=== PATIENT | female | born 1980 | race Caucasian/White ===

== ENCOUNTER 2018-02-18 05:56 | Inpatient (IN) | payer OTHER ==
[2018-02-18 06:23] VITALS: BMI 24.5
--- NOTE | 2018-02-18 07:05 | OBHP ---
Datetime: 02/18/2018 06:56 IP Adm Impression: Term, intrauterine ; Intact Membranes IP Admit Plan: Admit to unit; Initiate labor augmentation protocol Admit Comment, IP Provider: 37 yo female with an IUP at 39 weeks Present with c/o of irregular contractions and Decrease Movement Will Admit in early labor and for augmentation, as per Dr. Pineda Rh +/ GBS Negative Pelvic Type - PN: Adequate Extremities - PN: Normal Abdomen - PN: Normal Back - PN: Normal Breast - PN: Not Done Lungs - PN: Normal Heart - PN: Normal Thyroid - PN: Normal Neurologic - PN: Normal HEENT - PN: Normal General - PN: Normal Presentation-Admit: Vertex FHR - Baseline A Provider: 130 Membranes, Provider: Intact Contraction Comments Provider: 5-6 mins Comments, ACOG Physical Exam: SVE: 2cms, 80%, -2 but posterior Gestation - Est Wks by US: 39.0 EGA AdmitDate IP: 39.1 Vital Signs Provider: Reviewed; Within Normal Limits IP Chief Complaint: Uterine contractions; Decreased movement NICHD Variability Prov Fetus A: Moderate 6-25bpm NICHD Accel Fetus A IP Provider: [id number] FHR Category Provider Fetus A: Category I Dilatation, Provider: 2 Effacement, Provider: 80 Station, Provider: -2 Genitourinary Exam: Normal DTRs - PN: Normal
[2018-02-18] MEDS ORDERED: Oxytocin 30 UNIT 30 UNITS/500 ML BAG IV SCH (07:15)
--- NOTE | 2018-02-18 07:24 | OBADHP ---
Datetime: 02/18/2018 06:56 Admit Comment, IP Provider: 37 yo female with an IUP at 39 weeks Present with c/o of irregular contractions and Decrease Movement increasing intentiy and fru qency 04/08. pt dneis lof, vb. Will Admit in early labor and for augmentation, as per Dr. Pineda Rh +/ GBS Negative OB: P0 [employer]: Deie PMH: Denie sPSH: Denies FHX: non tontiub MEDS: PNV SHX: negaive x 3 NKDA A/P @ 39+ wks augmentaiton for oligohdrmanin, ama -admit to L+D -npo, ivf -admissin labs -Pian medication options dw -pitocn -cont toco adn efm Pelvic Type - PN: Adequate Extremities - PN: Normal Abdomen - PN: Normal Back - PN: Normal Breast - PN: Not Done Lungs - PN: Normal Heart - PN: Normal Thyroid - PN: Normal Neurologic - PN: Normal HEENT - PN: Normal General - PN: Normal Presentation-Admit: Vertex FHR - Baseline A Provider: 130 Membranes, Provider: Intact Contraction Comments Provider: 5-6 mins Comments, ACOG Physical Exam: Bedsdie Sonogram SVE: 2cms, 80%, -2 but posterior Bedside sonogram SUNDAY 4.7cm Gestation - Est Wks by US: 39.0 IP Hx Assessment: The History has been Reviewed and is Current Vital Signs Provider: Reviewed; Within Normal Limits IP Chief Complaint: Uterine contractions; Decreased movement NICHD Variability Prov Fetus A: Moderate 6-25bpm NICHD Accel Fetus A IP Provider: [id number] FHR Category Provider Fetus A: Category I Dilatation, Provider: 2 Effacement, Provider: 80 Station, Provider: -2 Genitourinary Exam: Normal DTRs - PN: Normal EGA AdmitDate IP: 39.1 IP Adm Impression: Term, intrauterine ; Intact Membranes IP Admit Plan: Admit to unit; Initiate labor augmentation protocol
[2018-02-18] MEDS ORDERED: Oxytocin 30 UNIT 30 UNITS/500 ML BAG IV ONE (07:25)
[2018-02-18 08:19] LABS: BASO % 0.3 % (0.0-2.0); EOS # 0.1 K/uL (0.0-0.7); EOS % 1.2 % (0.0-4.0); LYMPH % 23.3 % (20.0-40.0); MEAN CELL VOLUME 85.4 fL (81.0-99.0); MEAN CORPUSCULAR HEMOGLOBIN 29.5 pg (27.0-31.0); MEAN CORPUSCULAR HGB CONC 34.5 g/dL (33.0-37.0); MEAN PLATELET VOLUME 8.7 fL (7.2-11.7); MONO # 0.5 K/uL (0.0-0.8); MONO % 6.4 % (0.0-10.0); NEUT # 5.9 K/uL (1.8-7.0); NEUT % 68.8 % (50.0-75.0); RBC 4.06 Mil/uL (3.80-5.20); RED CELL DISTRIBUTION WIDTH 13.5 % (11.5-14.5); WHITE BLOOD COUNT 8.5 K/uL (4.8-10.8)
[2018-02-18 08:30] LABS: ALB/GLOB RATIO 1.3 (1.0-2.1); ALBUMIN 3.7 g/dL (3.5-5.0); ALT/SGPT 19 U/L (9-52); AST/SGOT 20 U/L (14-36); BLOOD UREA NITROGEN 4 mg/dL (7-17); CALCIUM 9.2 mg/dl (8.6-10.4); GFR AFRICAN-AMERICAN > 60; GFR NON-AFRICAN AMERICAN > 60
[2018-02-18 08:32] LABS: SQUAMOUS EPITHIAL 10 /hpf (0-5); URINE BACTERIA MANY (<OCC); URINE BILIRUBIN NEGATIVE (NEGATIVE); URINE BLOOD NEGATIVE (NEGATIVE); URINE CLARITY Clear (Clear); URINE COLOR Straw (YELLOW); URINE GLUCOSE (UA) NORMAL (Normal); URINE LEUKOCYTE ESTERASE 1+ Leu/uL (Negative); URINE PROTEIN NEGATIVE (NEGATIVE); URINE UROBILINOGEN NORMAL mg/dL (0.2-1.0)
--- NOTE | 2018-02-18 11:01 | OBPN ---
Datetime: 02/18/2018 10:58 IP Progress Impression: Normal progression of labor IP Progress Plan: Continue present management Membranes, Provider: Intact FHR - Baseline A Provider: 125 Gestation - Est Wks by US: 39.1 Presentation-Admit: Vertex IP Progress Note Comment: pt seen adn examiend c/o of pain , desiresing epdiural, no lof, vb, +FM VSS VE: 4/50/-2 vtx, intact EMF: Cat I TOCO: q 2-3 min Pitoicn 5mu/min A/P @ 39+ wks in labor anesthesia consult pitocin as per protocol cont curretn mangamet Vital Signs Provider: Reviewed; Within Normal Limits FHR Category Provider Fetus A: Category I NICHD Variability Prov Fetus A: Moderate 6-25bpm Dilatation, Provider: 4 Effacement, Provider: 50 Station, Provider: -2 NICHD Decel Fetus A IP Provider: None Datetime: 02/18/2018 06:56 Contraction Comments Provider: 5-6 mins NICHD Accel Fetus A IP Provider: [id number]
[2018-02-18] MEDS ORDERED: Bupivacaine HCl/FentaNYL Cit 100 ML EPI ONE (11:02)
[2018-02-18] MEDS ORDERED: Morphine 1 mg/ml preservative-free Inj(Duramorph) ONE (11:42)
--- NOTE | 2018-02-18 13:31 | OBPN ---
Datetime: 02/18/2018 13:27 IP Progress Impression: Normal progression of labor IP Procedures: Artificial ROM IP Progress Plan: Continue present management Membranes, Provider: Ruptured Amniotic Fluid Color, Provider: Clear FHR - Baseline A Provider: 125 Gestation - Est Wks by US: 39.1 Presentation-Admit: Vertex IP Progress Note Comment: pt seen and examiend rperots pian better controlled after epidural VSS EF: Cat I TOCO: q 2-4 min Pitocin 5mu/min A/P @ 39+ wks in labor cont curretn magent Vital Signs Provider: Reviewed; Within Normal Limits FHR Category Provider Fetus A: Category I NICHD Variability Prov Fetus A: Moderate 6-25bpm Dilatation, Provider: 6 Effacement, Provider: 90 Station, Provider: -1 NICHD Decel Fetus A IP Provider: None
[2018-02-18] MEDS ORDERED: Oxytocin 10 Units/ml Inj ONE (14:39)
--- NOTE | 2018-02-18 16:01 | OBPN ---
Datetime: 02/18/2018 15:41 IP Progress Impression: Normal progression of labor IP Progress Plan: Continue present management Membranes, Provider: Ruptured FHR - Baseline A Provider: 125 Gestation - Est Wks by US: 39.1 Presentation-Admit: Vertex IP Progress Note Comment: pt seen adn examined for progressin of laobs s/p epdiural feels pressure vE: 10cm EMF Cat I TOCO: q 2 min A/P @ 39+ wks fully dilated strat pushign anticipate cont curretn mangamet Vital Signs Provider: Reviewed; Within Normal Limits FHR Category Provider Fetus A: Category I NICHD Variability Prov Fetus A: Moderate 6-25bpm Dilatation, Provider: 10 Effacement, Provider: 100 Station, Provider: -1 NICHD Decel Fetus A IP Provider: None
--- NOTE | 2018-02-18 16:34 | OBDS ---
MATERNAL INFORMATION Provider Comments: Pt was fully dlate dand pushing. verbacl consent for right mediolateral episitomy given by patient, Atraumtaic, spontaneous delivery of head with compoud left hand, no nuchal cord no olaf. atraumatic, spontaneous delivery of anterior followed by posterior shoulder followed by delivery of shelley body. both oral and nasal passages of the baby were bulb suctioned. umbilical cord was clampe d and cut. Baby handed to mother on abdomen with RN assistance. Cord blood and cord gases collected a nd sent x 2. Spontaneosus delivery of intact placenta with membranes, fundus firm, good hemostaiss. r ight mediolateral epistiomy repaired iwht local anesthetic lidocaine with epinephrien with 2-0 and 3- 0 chromic suture. good hemostasis, no complications Live female infant agpars 9,9 weight of 7lbs 7 ounces ebls 300ml no complications LABOR SUMMARY EDC: 02/24/2018 00:00 MEMBRANES Membranes Rupture Method: Artificial Rupture of Membranes: 02/18/2018 13:20 Length of Rupture (hrs): 2.78 Amniotic Fluid Color: Clear Amniotic Fluid Amount: Moderate Amniotic Fluid Odor: Normal STAGES OF LABOR Stage 3 hrs: 0 Stage 3 min: 2 VAGINAL DELIVERY Episiotomy: Right Mediolateral Laceration Extension: Second Degree Laceration Type: Perineal Laceration Repair: Yes Initial Vag Sponge Count: 10 Final Vag Sponge Count: 10 Initial Vag Sharps Count: 3 Final Vag Sharps Count: 3 Sponge Count Correct: Yes Sharps Count Correct: Yes BABY A INFORMATION Infant Delivery Date/Time: 02/18/2018 16:07 Method of Delivery: Vaginal Born in Route : No : N/A Forceps: N/A Vacuum Extraction: N/A Shoulder Dystocia : No SHOULDER DYSTOCIA BABY A Infant Delivery Date/Time: 02/18/2018 16:07 PRESENTATION/POSITION BABY A Presentation: Compound with left hand Cephalic Presentation: Vertex Vertex Position: Left Occipital Anterior Breech Presentation: N/A PLACENTA INFORMATION BABY A Placenta Delivery Time : 02/18/2018 16:09 Placenta Method of Delivery: Spontaneous Placenta Status: Delivered INFORMATION BABY A Gestational Age at Delivery: 39.1 Gestational Status: Term Outcome : Liveborn Condition : Stable Infant Sex: Female IDENTIFICATION/MEDS BABY A ID Band Number: [id number] ID Band Location: Left Leg; Left Arm Sensor Applied: Yes Sensor Number: [id number] Sensor Location : Cord Clamp WEIGHT/LENGTH BABY A Birthweight (gms): 3365 Weight (lb): 7 Weight (oz): 7 Length Inches: 20.00 Infant Length cms: 50.8 CORD INFORMATION BABY A No. Cord Vessels: 3 Nuchal Cord : N/A Suction: Mouth; Nose ASSESSMENT BABY A Infant Complications: None
[2018-02-18] MEDS ORDERED: Benzocaine/Menthol 20%-0.5% Topical Spray (60 ml) TOP PRN (16:35)
[2018-02-18] MEDS ORDERED: Oxycodone/Acetaminophen 5/325 mg Tab PO PRN ×2 (16:35)
--- NOTE | 2018-02-19 07:03 | OBPPN ---
Datetime: 02/19/2018 06:52 PP Pain Prov: Within normal limits PP Nausea Prov: Denies PP Flatus Prov: Yes PP BM Prov: No PP Breasts Prov: Normal PP Heart Prov: Normal PP Lungs Prov: Normal PP Abdomen/Uterus Prov: Normal PP Lochia Prov: Normal PP Vulva/Perineum Prov: Normal PP CVA Tenderness Prov: Normal PP Extremities Prov: Normal PP C/S Incision Prov: Not Applicable PP Progress Prov: Normal PP Impression Prov: Normal progression PP Plan Prov: Continue present management PP Progress Note Prov: pt seen and examined adn reports pain is well controlled. Pt denies any fever , chills, nause, vomiing, cp, sob, bowel concner. pt is ambulating, voiding, passing flatus, tolerat ing regular diet, bresat feedign adn denies any sadness or depression VSS PE GEN NAD AAO x 3 RESP: CTAB?/l CVS: RRR, +S1/S2 ABD: Soft, NT/ND, no ugarding, no rebound tendnerss, no rigidity, B+S FUNDUS: Firm, at leve of umbiulics, non tender VE: minimal lochia, non foul smelling. episitiomy site c/d/i EXT: no calf tendnerss b/l, negatrive homans sign A/P s/p PPD #1 am labs pain managment regular diet encourage mabatiuon / breast feeding IP PP Procedures: None Vital Signs Provider PP: Reviewed; Within Normal Limits
[2018-02-19 08:52] LABS: BASO # 0.1 K/uL (0.0-0.2); BASO % 0.4 % (0.0-2.0); EOS % 0.2 % (0.0-4.0); HEMOGLOBIN 12.8 g/dL (11.0-16.0); LYMPH # 1.9 K/uL (1.0-4.3); LYMPH % 13.2 % (20.0-40.0); MEAN CELL VOLUME 86.5 fL (81.0-99.0); MEAN CORPUSCULAR HEMOGLOBIN 28.6 pg (27.0-31.0); MEAN PLATELET VOLUME 8.4 fL (7.2-11.7); MONO # 0.7 K/uL (0.0-0.8); MONO % 5.2 % (0.0-10.0); NEUT # 11.7 K/uL (1.8-7.0); RBC 4.48 Mil/uL (3.80-5.20); RED CELL DISTRIBUTION WIDTH 13.8 % (11.5-14.5)
[2018-02-19 08:56] LABS: WHITE BLOOD COUNT 14.4 K/uL (4.8-10.8)
[2018-02-19 09:19] LABS: ALB/GLOB RATIO 1.3 (1.0-2.1); ALBUMIN 3.5 g/dL (3.5-5.0); ALT/SGPT 33 U/L (9-52); AST/SGOT 42 U/L (14-36); BLOOD UREA NITROGEN 6 mg/dL (7-17); CALCIUM 9.1 mg/dl (8.6-10.4); GFR AFRICAN-AMERICAN > 60; GFR NON-AFRICAN AMERICAN > 60
[2018-02-19] MEDS: Multiple Vitamins Tab PO SCH (10:04)
[2018-02-20 07:58] VITALS: PULSE 70; RESP 18; TEMP 97.6; O2SAT 100
[2018-02-20] MEDS: Multiple Vitamins Tab PO SCH (10:01)
--- NOTE | 2018-02-20 12:15 | OBPPN ---
Datetime: 02/20/2018 12:13 PP Pain Prov: Within normal limits PP Nausea Prov: Denies PP Flatus Prov: Yes PP BM Prov: Yes PP Breasts Prov: Normal PP Heart Prov: Normal PP Lungs Prov: Normal PP Abdomen/Uterus Prov: Normal PP Lochia Prov: Normal PP Vulva/Perineum Prov: Normal PP CVA Tenderness Prov: Normal PP Extremities Prov: Normal PP C/S Incision Prov: Not Applicable PP Progress Prov: Normal PP Impression Prov: Normal progression PP Plan Prov: Continue present management; Discharge Vital Signs Provider PP: Reviewed; Within Normal Limits
--- NOTE | 2018-02-20 12:15 | OBDCSUM ---
Datetime: 02/20/2018 09:00 Discharged to, Provider: Home Follow up at, Provider: Dr. Mora Pineda Disch Instr Activity: Normal activity Disch Instr Diet: Regular Discharge Diet restrict Prov: none Discharge Instructions, Provider: Routine instructions given Discharge Diagnosis, Provider: Term Delivered Discharge Time: 02/20/2018 12:30 Follow up in weeks, Provider: 2 weeks Disch Referrals: None Contraception discussed, Prov: Yes Disch Activity Restrictions: No exercising; No lifting; No driving; Minimize walking; Minimize stair -climbing; No sexual activity; Nothing in vagina - [place], tampons, douche Contraception after Delivery: Not Planning to Use
[2018-02-20 17:47] VITALS: BP 96/57
== END 2018-02-20 13:15 | disposition home or self-care (01) | DRG 775 ==
LOC: C.EROB 05:56 → C.4D 06:41 → C.4M 18:10
PROVIDERS: ADMIT Obstetrics & Gynecology; ATTEND Obstetrics & Gynecology
PROC: 10E0XZZ Delivery of Products of Conception, External Approach (ICD-10-PCS; principal; 2018-02-18)
PROC: 0KQM0ZZ Repair Perineum Muscle, Open Approach (ICD-10-PCS; 2018-02-18)
PROC: 0W8NXZZ Division of Female Perineum, External Approach (ICD-10-PCS; 2018-02-18)
PROC: 10907ZC Drainage of Amniotic Fluid, Therapeutic from Products of Conception, Via Natural or Artificial Opening (ICD-10-PCS; 2018-02-18)
DX: O36.8130 Decreased fetal movements, third trimester, not applicable or unspecified (principal); O41.03X0 Oligohydramnios, third trimester, not applicable or unspecified; O70.1 Second degree perineal laceration during delivery; Z3A.39 39 weeks gestation of pregnancy; Z37.0 Single live birth